=== PATIENT | female | born 1960 | race Caucasian/White ===

== ENCOUNTER → 2016-10-10 | Outpatient (CLI) | payer MEDICARE, MEDICAID ==
[~2016-10-10] MED LIST: /WARF5TA PO; ALBU83IN INH; ASPI325T PO; CALC600T62 PO; CALCTAB68 PO; EFFE150C PO; EFFEXOR ER PO; EFFEXOR-XR PO; ELIQ5TAB PO; FLON1SPR; MIRA3350 PO; MULTLIQ7 PO; QUET30XR PO; RISP3TAB PO; RISP3TAB2 PO; RISP3TAB3 PO; SERO150T PO; SERO200T2 PO; TOLN1POW TOP; TOPA100T PO; TOPA50TA PO; TOPI1TAB31 PO; TOPI50TA4 PO; TYLE325T5 PO; VITACHTA PO; WARF2.5T38 PO; WARF5TAB66 PO
== END ==
LOC: M LRY 10:12
DX: Z51.81 Encounter for therapeutic drug level monitoring (principal); Z79.899 Other long term (current) drug therapy

== ENCOUNTER → 2016-10-10 | Outpatient (REF) | payer MEDICARE, MEDICAID | LOC: M LRY 11:18 | PROVIDERS: ATTEND Psychiatry & Neurology Psychiatry | DX: Z51.81 Encounter for therapeutic drug level monitoring (principal); Z79.899 Other long term (current) drug therapy ==

== ENCOUNTER → 2017-01-05 | Outpatient (REF) | payer MEDICARE, MEDICAID ==
[~2017-01-05] MED LIST changes: +EPIP0.3I2 IJ; +SERO50TA PO; +TOPI100T9 PO; -TOPI1TAB31 PO; -TOPI50TA4 PO; +TOPI50TA9 PO
== END ==
LOC: M SFHCWAGY 10:35
PROVIDERS: ATTEND Nurse Practitioner Family
DX: Z12.4 Encounter for screening for malignant neoplasm of cervix (principal); Z12.31 Encounter for screening mammogram for malignant neoplasm of breast; Z12.11 Encounter for screening for malignant neoplasm of colon
CPT/HCPCS: 82270; G0101; G0123; G0202

== ENCOUNTER → 2017-01-05 | Outpatient (CLI) | payer MEDICARE, MEDICAID ==
--- NOTE | 2017-01-05 12:30 | REPMRS ---
Patient History The patient states she had a clinical breast exam in 12/2016. Patient is postmenopausal and is nulliparous. Family history of colorectal cancer in father. Digital Woman Screen Mammo: January 05, 2017 - Exam #: [id number] Bilateral CC and MLO view(s) were taken. Technologist: Fabienne Fernandez, Technologist Prior study comparison: January 03, 2016, digital woman screen mammo performed at [facility] to [facility]. January 01, 2015, digital woman screen mammo performed at [facility] to [facility]. FINDINGS: There are scattered fibroglandular densities. There has been no change in the appearance of the mammogram from the prior studies. There is a mild amount of residual fibroglandular tissue which is fairly symmetric. There is no interval development of dominant mass, architectural distortion, or clustered microcalcification suggestive of malignancy. ASSESSMENT: BI-RADS/ACR category 1 mammogram. Negative. Recommendation Routine screening mammogram in 1 year (for women over age 40). This mammogram was interpreted with the aid of an FDA-approved computer-aided dectection system. Electronically Signed By: Carlos A Carroll MD 01/05/17 0298
== END ==
LOC: M WHC 10:20
PROVIDERS: ATTEND Nurse Practitioner Family
DX: Z12.31 Encounter for screening mammogram for malignant neoplasm of breast (principal); Z78.0 Asymptomatic menopausal state; Z92.89 Personal history of other medical treatment

== ENCOUNTER → 2017-01-07 | Outpatient (CLI) | payer MEDICARE, MEDICAID ==
--- NOTE | 2017-01-07 18:31 | REP ---
RIGHT HIP COMPLETE: 01/07/2017: Clinical history: Hip pain, evaluate for fracture. Findings: No prior study. Two-views show the hip joint space, symmetric relatively preserved and without evidence of acetabular or femoral head rim osteophyte. Femoral head neck, trochanters and subtrochanteric femur, pubic rami, symphysis pubis, acetabulum and iliac bone visible were unremarkable. The SI joints and visible sacral ala and foramina intact. Impression. 1. No visible or displaced fracture about the hip. Signed by Nilo Starr MD 01/08/2017 04:43 P
== END ==
LOC: M LRY 15:55
PROVIDERS: ATTEND Nurse Practitioner Family
DX: M25.551 Pain in right hip (principal)

== ENCOUNTER → 2017-01-23 | Outpatient (REF) | payer MEDICARE, MEDICAID | LOC: M LAB REF 13:08 | PROVIDERS: ATTEND Nurse Practitioner Family | DX: R21 Rash and other nonspecific skin eruption (principal) ==

== ENCOUNTER 2017-02-09 10:41 | Day surgery (SDC) | payer MEDICARE, MEDICAID ==
[~2017-02-09] VITALS: Ht 154.9 cm; Wt 95.3 kg
[~2017-02-09 10:41] MED LIST changes: +CIPRODEX OTIC SUSP 7.5ML As Ordered ONE; +EPINEPHrine 1MG/ML INJ 30ML MD-VIAL As Ordered ONE; +LIDOCAINE W/EPINEPHRINE 1% 20ML VIAL As Ordered ONE; +MIDAZOLAM INJ 2 MG/2 ML VIAL (J2250) As Ordered ONE; +fentaNYL 100 MCG/2 ML INJECTION (J3010) As Ordered ONE
[2017-02-09] MEDS ORDERED: LR 1,000 ML IV ONE (11:00)
[2017-02-09] MEDS ORDERED: SCOPOLAMINE 1.5 MG TRANSDERMAL As Ordered ONE (11:27)
[2017-02-09] MEDS ORDERED: SCOPOLAMINE 1.5 MG TRANSDERMAL TOP ONE (11:30)
[2017-02-09] MEDS ORDERED: PHENYLephrine HCL 500 MCG/5 ML (100MCG/ML) SYRINGE (J2370) As Ordered ONE (11:56)
[2017-02-09] MEDS ORDERED: ePHEDrine SULFATE 25 MG/5 ML(5MG/ML) SYRINGE As Ordered ONE (11:57)
[2017-02-09] MEDS ORDERED: DESFLURANE 240 ML INHALANT As Ordered ONE (12:15)
[2017-02-09] MEDS ORDERED: dexameTHASONE 4 MG/ML 1ML VIAL (J1100) As Ordered ONE (12:37)
[2017-02-09] MEDS ORDERED: ONDANSETRON 4MG/2ML VIAL (J2405) As Ordered ONE (12:37)
[2017-02-09] MEDS ORDERED: fentaNYL 100 MCG/2 ML INJECTION (J3010) As Ordered ONE (13:04)
[2017-02-09] MEDS ORDERED: fentaNYL 100 MCG/2 ML INJECTION (J3010) IV PRN (14:15)
[2017-02-09] MEDS ORDERED: LR 1,000 ML IV SCH ×2 (14:15)
[2017-02-09] MEDS ORDERED: ACETAMINOPH W/CODEINE #3 TAB UD PO PRN (14:15)
[2017-02-09] MEDS ORDERED: PERCOCET 5MG/325MG TAB PO PRN (14:15)
[2017-02-09] MEDS ORDERED: ONDANSETRON 4MG/2ML VIAL (J2405) IV PRN (14:15)
--- NOTE | 2017-02-09 14:46 | RO ---
DATE OF PROCEDURE: 02/09/2017 PREOPERATIVE DIAGNOSIS: Right-sided hearing loss. POSTOPERATIVE DIAGNOSIS: Right-sided hearing loss. OPERATIVE PROCEDURE: Right tympanotomy and meatoplasty. SURGEON: Dr. Zion Brown CREOSOTING ENGINEER: ANESTHESIA: FINDINGS: There was some edema in the middle air space and no evidence of any cholesteatoma. Because of all the scarring, a reconstruction of ossicles was not performed. In addition, the patient had a posterior pocket in the canal, and this was revised during the procedure. DESCRIPTION OF PROCEDURE: Under general anesthesia, the patient prepped and draped in the usual manner, I infiltrated with lidocaine and epinephrine. A made a posterior tympanotomy incision and elevated that flap to the middle ear. The middle ear was examined. The above findings were seen. The canal wall skin was returned to original position. Then, a postauricular incision was made. I then dissected down to the mastoid. I then elevated this pocket out and removed it. Then, I took the canal wall skin, and I sutured it anteriorly. I put Iodoform dressing in the ear canal and then Iodoform gauze in the mastoid. I closed the wound with 3-0 chromic and 3-0 Prolene. The patient tolerated the procedure well. The patient was extubated and transferred to the recovery room in excellent condition.
[2017-02-09 17:40] VITALS: BP 119/56
== END 2017-02-09 17:46 | disposition home or self-care (01) ==
LOC: M SDC 10:41
PROVIDERS: ATTEND Otolaryngology
DX: H91.91 Unspecified hearing loss, right ear (principal); G47.33 Obstructive sleep apnea (adult) (pediatric); R73.09 Other abnormal glucose; M93.90 Osteochondropathy, unspecified of unspecified site; G31.84 Mild cognitive impairment of uncertain or unknown etiology; F31.9 Bipolar disorder, unspecified; F20.0 Paranoid schizophrenia; K59.00 Constipation, unspecified; Z88.0 Allergy status to penicillin; Z91.030 Bee allergy status; Z79.899 Other long term (current) drug therapy; Z86.711 Personal history of pulmonary embolism
CPT/HCPCS: 69310; J1100; J2250; J2370; J2405; J3010

== ENCOUNTER 2017-06-20 18:18 | Emergency (ER) | payer MEDICARE, MEDICAID ==
[2017-06-20 20:23] LABS: BASO % 0.4 % (0.0-1.0); EOS % 0.5 % (0.0-3.0); HEMATOCRIT 42.1 % (36.0-47.0); HEMOGLOBIN 13.7 g/dl (12.0-16.0); IMMATURE GRANULOCYTE % 0.4 % (0-0); LYMPH # 0.7 10^3/uL (1.5-4.5); LYMPH % 9.1 % (24.0-44.0); MEAN CORPUSCULAR HEMOGLOBIN 28.3 pg (27.0-33.0); MEAN CORPUSCULAR HGB CONC 32.5 g/dl (32.0-36.5); MONO # 0.7 10^3/uL (0.0-0.8); MONO % 8.9 % (0.0-5.0); NEUTROPHILS # 6.1 10^3/uL (1.8-7.7); NEUTROPHILS % 80.7 % (36.0-66.0); PLATELET COUNT, AUTOMATED 204 10^3/uL (150-450); RED BLOOD COUNT 4.84 10^6/uL (4.00-5.40); RED CELL DISTRIBUTION WIDTH 13.9 % (11.5-14.5); WHITE BLOOD COUNT 7.6 10^3/uL (4.0-10.0)
[2017-06-20 20:35] LABS: CONTROL LINE MONO INT CTR LINE PRESENT; MONO SCRN NEGATIVE (NEGATIVE)
[2017-06-20 20:39] LABS: ANION GAP 9 MEQ/L (8-16); BLOOD UREA NITROGEN 9 MG/DL (7-18); CALCIUM LEVEL 7.7 MG/DL (8.5-10.1); CARBON DIOXIDE LEVEL 22 MEQ/L (21-32); CHLORIDE LEVEL 108 MEQ/L (98-107); CREATININE FOR GFR 0.94 MG/DL (0.55-1.30); GLOMERULAR FILTRATION RATE > 60.0 (>51); GLUCOSE, FASTING 127 MG/DL (70-100); SODIUM LEVEL 139 MEQ/L (136-145)
[2017-06-20 20:50] LABS: INFLUENZA A AMPLIFICATION NEGATIVE (NEGATIVE); INFLUENZA B AMPLIFICATION NEGATIVE (NEGATIVE)
[2017-06-20 22:01] LABS: KETONE, URINE AUTO RFX NEGATIVE (NEGATIVE); LEUKOCYTE ESTERASE UR AUTO RFX NEGATIVE (NEGATIVE); NITRITE, URINE AUTO RFX NEGATIVE (NEGATIVE); RBC, URINE AUTO RFX 0 /HPF (0-3); SPECIFIC GRAVITY UR AUTO RFX 1.002 (1.002-1.035); SQUAM EPITHELIAL CELL UR AURFX 3 /HPF (0-6); WBC, URINE AUTO RFX 1 /HPF (0-3)
== END 2017-06-20 22:40 | disposition home or self-care (01) ==
LOC: M ED 18:18
DX: J02.0 Streptococcal pharyngitis (principal); H66.92 Otitis media, unspecified, left ear; G40.909 Epilepsy, unspecified, not intractable, without status epilepticus; F79 Unspecified intellectual disabilities; F33.9 Major depressive disorder, recurrent, unspecified; Z79.899 Other long term (current) drug therapy; Z86.711 Personal history of pulmonary embolism; Z88.0 Allergy status to penicillin; Z91.030 Bee allergy status; Z98.890 Other specified postprocedural states
CPT/HCPCS: 71046

== ENCOUNTER → 2017-10-19 | Outpatient (CLI) | payer MEDICARE, MEDICAID ==
[~2017-10-19] MED LIST changes: -/WARF5TA PO; -ALBU83IN INH; -ASPI325T PO; -CALC600T62 PO; -CALCTAB68 PO; -CIPRODEX OTIC SUSP 7.5ML As Ordered ONE; +E-Z-PAQUE 96% w/w SUSP 176GM BTL As Ordered; -EFFE150C PO; -EFFEXOR ER PO; -EFFEXOR-XR PO; -ELIQ5TAB PO; -EPINEPHrine 1MG/ML INJ 30ML MD-VIAL As Ordered ONE; -EPIP0.3I2 IJ; -FLON1SPR; -LIDOCAINE W/EPINEPHRINE 1% 20ML VIAL As Ordered ONE; -MIDAZOLAM INJ 2 MG/2 ML VIAL (J2250) As Ordered ONE; -MIRA3350 PO; -MULTLIQ7 PO; -QUET30XR PO; -RISP3TAB PO; -RISP3TAB2 PO; -RISP3TAB3 PO; -SERO150T PO; -SERO200T2 PO; -SERO50TA PO; -TOLN1POW TOP; -TOPA100T PO; -TOPA50TA PO; -TOPI100T9 PO; -TOPI50TA9 PO; -TYLE325T5 PO; +VARIBAR NECTAR 40% w/v 240ML SUSP BTL As Ordered; +VARIBAR PUDDING 40% w/v 230ML TUBE As Ordered; -VITACHTA PO; -WARF2.5T38 PO; -WARF5TAB66 PO; -fentaNYL 100 MCG/2 ML INJECTION (J3010) As Ordered ONE
== END ==
LOC: M RAD 10:56
DX: R13.10 Dysphagia, unspecified (principal)
CPT/HCPCS: 92611

== ENCOUNTER → 2017-11-11 | Outpatient (REF) | payer MEDICARE, MEDICAID | LOC: M SFHCLERA 18:07 | DX: R30.0 Dysuria (principal) | CPT/HCPCS: 87086 ==

== ENCOUNTER → 2018-08-23 | Outpatient (CLI) | payer MEDICARE, MEDICAID ==
[~2018-08-23] MED LIST changes: +ALBU83IN INH; +ASPI325T PO; +BACT800T5 PO; +CALC600T62 PO; +CALCTAB68 PO; +COUM1TAB17 PO; -E-Z-PAQUE 96% w/w SUSP 176GM BTL As Ordered; +EFFE150C2 PO; +EFFEXOR ER PO; +EFFEXOR-XR PO; +ELIQ5TAB PO; +EPIP0.3I2 IJ; +FLON1SPR; +MIRA3350 PO; +MULTLIQ7 PO; +RISP3TAB PO; +RISP3TAB2 PO; +RISP3TAB3 PO; +SERO150T PO; +SERO200T2 PO; +SERO300T PO; +SERO50TA PO; +TOLN1POW TOP; +TOPA100T PO; +TOPA50TA PO; +TOPI100T9 PO; +TOPI50TA9 PO; +TYLE325T5 PO; -VARIBAR NECTAR 40% w/v 240ML SUSP BTL As Ordered; -VARIBAR PUDDING 40% w/v 230ML TUBE As Ordered; +VITACHTA PO; +WARF2.5T38 PO; +WARF5TAB66 PO
[2018-08-23 12:22] LABS: ALBUMIN 3.6 GM/DL (3.2-5.2); ALT/SGPT 28 U/L (12-78); BILIRUBIN,TOTAL 0.3 MG/DL (0.2-1.0); BLOOD UREA NITROGEN 16 MG/DL (7-18); CALCIUM LEVEL 8.6 MG/DL (8.5-10.1); CARBON DIOXIDE LEVEL 26 MEQ/L (21-32); CHLORIDE LEVEL 109 MEQ/L (98-107); CHOLESTEROL LEVEL 257 MG/DL (<200); CHOLESTEROL RISK RATIO 4.508 (<5); CREATININE FOR GFR 0.99 MG/DL (0.55-1.30); GLOMERULAR FILTRATION RATE > 60.0 (>51); GLUCOSE, FASTING 113 MG/DL (70-100); HDL CHOLESTEROL 57 MG/DL (>40); LDL CHOLESTEROL 172 MG/DL (<100); NON-HDL-C 200 MG/DL; POTASSIUM SERUM 4.2 MEQ/L (3.5-5.1); SODIUM LEVEL 142 MEQ/L (136-145); TOTAL PROTEIN 6.9 GM/DL (6.4-8.2); TRIGLYCERIDES LEVEL 142 MG/DL (<150)
== END ==
LOC: M LRY 08:12
PROVIDERS: ATTEND Psychiatry & Neurology Psychiatry
DX: Z79.899 Other long term (current) drug therapy (principal)

== ENCOUNTER 2018-11-04 09:37 | Day surgery (SDC) | payer MEDICARE, MEDICAID ==
[~2018-11-04] VITALS: Ht 157.5 cm; Wt 98.9 kg
[~2018-11-04 09:37] MED LIST changes: +ANUS25SU PR; +CALCCAP4 PO; +NYST1CRE15 TOP; +TINA1CRE TOP
[2018-11-04] MEDS ORDERED: PROPOFOL 200 MG/20 ML VIAL As Ordered ONE (12:06)
[2018-11-04] MEDS ORDERED: ROCURONIUM BROMIDE 50 MG/5 ML VIAL As Ordered ONE (12:08)
[2018-11-04] MEDS ORDERED: LIDOCAINE 2% INJ 100 MG/5 ML SDV (FOR ANES.) As Ordered ONE (12:08)
[2018-11-04] MEDS ORDERED: fentaNYL 100 MCG/2 ML INJECTION (J3010) As Ordered ONE (12:11)
[2018-11-04] MEDS ORDERED: MIDAZOLAM INJ 2 MG/2 ML VIAL (J2250) As Ordered ONE (12:11)
[2018-11-04] MEDS ORDERED: dexameTHASONE 4 MG/ML 1ML VIAL (J1100) As Ordered ONE (12:15)
[2018-11-04] MEDS ORDERED: ONDANSETRON 4MG/2ML VIAL (J2405) As Ordered ONE (12:15)
[2018-11-04] MEDS ORDERED: LIDOCAINE W/EPINEPHRINE 1% 20ML VIAL As Ordered ONE (12:49)
[2018-11-04] MEDS ORDERED: CIPRODEX OTIC SUSP 7.5ML As Ordered ONE (12:49)
[2018-11-04] MEDS ORDERED: EPINEPHrine INJ 1 MG/ML 1ML AMP As Ordered ONE (12:50)
[2018-11-04] MEDS ORDERED: EPINEPHrine 1MG/ML INJ 30ML MD-VIAL As Ordered ONE (12:54)
[2018-11-04] MEDS ORDERED: METHYLENE BLUE 0.5% (5MG/ML) 10 ML AMP (PROVAYBLUE)(Q9968 PER 1MG) As Ordered ONE (13:30)
[2018-11-04] MEDS ORDERED: SUGAMMADEX SODIUM 500 MG/5 ML VIAL (BRIDION) As Ordered ONE (13:58)
[2018-11-04] MEDS ORDERED: GLYCOPYRROLATE INJ 0.2 MG/ML 2 ML VIAL As Ordered ONE (14:14)
[2018-11-04] MEDS ORDERED: ONDANSETRON 4MG/2ML VIAL (J2405) IV PRN (15:15)
[2018-11-04] MEDS ORDERED: fentaNYL 100 MCG/2 ML INJECTION (J3010) IV PRN (15:15)
[2018-11-04] MEDS ORDERED: LR 1,000 ML IV SCH (15:30)
[2018-11-04 16:00] VITALS: BP 142/85
--- NOTE | 2018-11-04 17:15 | ECGEPIP ---
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
--- NOTE | 2018-11-06 10:02 | RO ---
DATE OF PROCEDURE: 02/04/2019 PREOPERATIVE DIAGNOSIS: Keratin cyst, right external auditory canal. POSTOPERATIVE DIAGNOSIS: Keratin cyst, right external auditory canal. OPERATIVE PROCEDURE: Removal of keratin cyst right external auditory canal. SURGEON: Zion Brown MD PARKING LOT SPOTTER: ANESTHESIA: DESCRIPTION OF PROCEDURE: Under general anesthesia with the patient intubated, the patient was draped in the usual manner. I cleaned the ear with Betadine and saline. I infiltrated with lidocaine and epinephrine. I then dissected around this cyst which was in the posterior superior part of the canal wall. It was affixed to the tympanic membrane. There was no evidence of a cholesteatoma. It was removed without difficulty. The patient tolerated the procedure well. There was no bleeding. The patient was transferred to the recovery room in excellent condition.
== END 2018-11-04 16:15 | disposition home or self-care (01) ==
LOC: M SDC 09:37
PROVIDERS: ATTEND Otolaryngology
DX: H60.41 Cholesteatoma of right external ear (principal); R73.03 Prediabetes; G47.30 Sleep apnea, unspecified; Z79.01 Long term (current) use of anticoagulants; Z86.711 Personal history of pulmonary embolism; F32.9 Major depressive disorder, single episode, unspecified; Z79.899 Other long term (current) drug therapy; Z91.030 Bee allergy status; Z88.0 Allergy status to penicillin
CPT/HCPCS: 69145; 88304; 93005; J1100; J2250; J2405; J3010; Q9968

== ENCOUNTER → 2019-01-07 | Outpatient (CLI) | payer MEDICARE, MEDICAID ==
--- NOTE | 2019-01-07 12:52 | REPMRS ---
Patient History The patient states she had a clinical breast exam in 12/2018. Patient is postmenopausal and is nulliparous. Family history of colorectal cancer in father. No Hormone Replacement Therapy 3D TOMOSYNTHESIS WAS PERFORMED. [facility] lifetime risk for breast cancer is 10.1%. Digital Woman Screen Mammo: January 07, 2019 - Exam #: [id number] Bilateral CC and MLO view(s) were taken. Technologist: Fabienne Fernandez, Technologist Prior study comparison: January 13, 2018, digital mammo diagnostic bilateral, performed at [facility]. January 05, 2017, digital woman screen mammo performed at [facility]. FINDINGS: There are scattered fibroglandular densities. There has been no change in the appearance of the mammogram from the prior studies. There is a mild amount of residual fibroglandular tissue which is fairly symmetric. There is no interval development of dominant mass, architectural distortion, or clustered microcalcification suggestive of malignancy. Assessment: BI-RADS/ACR category 1 mammogram. Negative Mammogram. Recommendation Routine screening mammogram in 1 year (for women over age 40). This mammogram was interpreted with the aid of an FDA-approved computer-aided dectection system. Electronically Signed By: Carlos A Carroll MD 01/07/19 [id number]
== END ==
LOC: M WHC 11:02
PROVIDERS: ATTEND Nurse Practitioner Family
DX: Z01.419 Encounter for gynecological examination (general) (routine) without abnormal findings (principal); Z12.31 Encounter for screening mammogram for malignant neoplasm of breast; Z78.0 Asymptomatic menopausal state; Z80.0 Family history of malignant neoplasm of digestive organs; Z12.12 Encounter for screening for malignant neoplasm of rectum
CPT/HCPCS: 77063; 77067; 82270; G0101

== ENCOUNTER → 2019-02-23 | Outpatient (REF) | payer MEDICARE, MEDICAID | LOC: M LAB REF 11:42 | PROVIDERS: ATTEND Registered Nurse | DX: N39.0 Urinary tract infection, site not specified (principal) ==

== ENCOUNTER → 2019-05-19 | Outpatient (CLI) | payer MEDICARE, MEDICAID | LOC: M LRY 14:26 | PROVIDERS: ATTEND Nurse Practitioner Family | DX: R06.2 Wheezing (principal); R10.10 Upper abdominal pain, unspecified; Z53.8 Procedure and treatment not carried out for other reasons ==

== ENCOUNTER → 2019-05-19 | Outpatient (CLI) | payer MEDICARE, MEDICAID ==
--- NOTE | 2019-05-19 15:08 | REP ---
Nickel: Upper abdominal pain. Technique: Three supine views of the abdomen and pelvis. Findings: Bowel gas pattern is nonspecific. No organomegaly. No abnormal calcifications. Skeletal structures demonstrate age-related degenerative changes. Impression: Nonspecific bowel gas pattern. Electronically Signed by Aldair Jackson MD 05/19/2019 03:00 P
--- NOTE | 2019-05-19 16:19 | REP ---
Two-view chest: 05/19/2019. Indication: Chest pain. Wheezing. Comparison: 09/23/2017. Findings: Poor inspiratory result is noted. There is no air space consolidation, pleural effusion or pneumothorax detected. Cardiac silhouette is borderline enlarged. Impression: There is no evidence of acute cardiopulmonary process. Poor inspiratory result. Electronically Signed by Nacho Odom DO 05/19/2019 02:58 P
== END ==
LOC: M LRY 14:33
PROVIDERS: ATTEND Nurse Practitioner Family
DX: R06.2 Wheezing (principal); R10.10 Upper abdominal pain, unspecified
CPT/HCPCS: 71046; 74018; 81002; 94640; G0463

== ENCOUNTER → 2019-07-12 | Outpatient (CLI) | payer MEDICAID, MEDICARE | LOC: M WHC 08:50 | PROVIDERS: ATTEND Nurse Practitioner Adult Health | DX: M81.0 Age-related osteoporosis without current pathological fracture (principal) ==

== ENCOUNTER → 2020-01-10 | Outpatient (CLI) | payer MEDICARE, MEDICAID ==
--- NOTE | 2020-01-11 16:14 | REPMRS ---
Patient History The patient states she had a clinical breast exam in December 2019. Family history of colorectal cancer in father. No Hormone Replacement Therapy Digital Woman Screen Mammo: January 10, 2020 - Exam #: [id number] Bilateral CC and MLO view(s) were taken. Technologist: Saira Riddle, Technologist Prior study comparison: January 07, 2019, bilateral digital woman screen mammo performed at [facility]. January 13, 2018, digital mammo diagnostic bilateral, performed at [facility]. January 05, 2017, digital woman screen mammo performed at [facility]. FINDINGS: There are scattered fibroglandular densities. The Volpara volumetric breast density category is:B. There has been no change in the appearance of the mammogram from the prior studies. There is a mild amount of scattered fibroglandular density which is fairly symmetric. There is no interval development of dominant mass, architectural distortion, or grouped microcalcification suggestive of malignancy. 3-D tomosynthesis shows no additional findings. Assessment: BI-RADS/ACR category 1 mammogram. Negative Mammogram. Recommendation Routine screening mammogram of both breasts in 1 year (for women over age 40). This patient's Lifetime Breast Cancer Risk is estimated at 9.9 %. This mammogram was interpreted with the aid of an FDA-approved computer-aided dectection system. Electronically Signed By: Adalid Kimbrough MD 01/11/20 [id number]
== END ==
LOC: M WHC 11:27
PROVIDERS: ATTEND Nurse Practitioner Family
DX: Z01.419 Encounter for gynecological examination (general) (routine) without abnormal findings (principal); Z12.31 Encounter for screening mammogram for malignant neoplasm of breast; Z80.0 Family history of malignant neoplasm of digestive organs
CPT/HCPCS: 77063; 77067; G0101

== ENCOUNTER → 2020-11-16 | Outpatient (CLI) | payer MEDICARE, MEDICAID ==
[~2020-11-16] MED LIST changes: +LEVOTAB10; +QUET100T2 PO; +RISP-10 PO; -RISP3TAB3 PO; +VITMTA PO
== END ==
LOC: M LABSMTC 13:12
PROVIDERS: ATTEND Anesthesiology
DX: Z01.818 Encounter for other preprocedural examination (principal); Z11.52 Encounter for screening for COVID-19

== ENCOUNTER 2020-11-21 13:21 | Day surgery (SDC) | payer MEDICARE, MEDICAID ==
[~2020-11-21] VITALS: Ht 149.9 cm; Wt 97.1 kg
[~2020-11-21 13:21] MED LIST changes: +NS 1,000 ML IV ONE
[2020-11-21] MEDS ORDERED: propofoL 200 MG/20 ML VIAL As Ordered ONE (13:44)
[2020-11-21] MEDS ORDERED: LIDOCAINE 2% 100MG/5ML SDV (FOR ANES.) As Ordered ONE (13:44)
--- NOTE | 2020-11-21 14:51 | ROOR ---
Patient Name: Janice Mazariegos Procedure Date: 11/21/2020 2:24 PM Date of : 1960 Age: 60 Room: [facility] Gender: Female Note Status: Finalized Procedure: Total Colonoscopy to Cecum Indications: Colon cancer screening in patient at increased risk: Colorectal cancer in father Providers: Alfredo Hameed MD Referring MD: Imelda Farrar NP Requesting Provider: Medicines: Monitored Anesthesia Care Complications: No immediate complications. Procedure: Pre-Anesthesia Assessment: - The heart rate, respiratory rate, oxygen saturations, blood pressure, adequacy of pulmonary ventilation, and response to care were monitored throughout the procedure. The Colonoscope was introduced through the anus and advanced to the cecum, identified by appendiceal orifice and ileocecal valve. The colonoscopy was performed without difficulty. The patient tolerated the procedure well. The quality of the bowel preparation was good. Findings: The perianal and digital rectal examinations were normal. Multiple small and large-mouthed diverticula were found in the recto-sigmoid colon, sigmoid colon and descending colon. The exam was otherwise without abnormality on direct and retroflexion views. Impression: - Diverticulosis in the recto-sigmoid colon, in the sigmoid colon and in the descending colon. - The examination was otherwise normal on direct and retroflexion views. - No specimens collected. - The exam was otherwise normal to the cecum. Recommendation: - Patient has a contact number available for emergencies. The signs and symptoms of potential delayed complications were discussed with the patient. Return to normal activities tomorrow. Written discharge instructions were provided to the patient. - High fiber diet. - Discharge patient to home. - Continue present medications. - Repeat colonoscopy in 5 years for screening purposes. - Return to referring physician. - The findings and recommendations were discussed with the patient's family. Procedure Code(s): --- Professional --- G0105, Colorectal cancer screening; colonoscopy on individual at high risk Diagnosis Code(s): --- Professional --- Z80.0, Family history of malignant neoplasm of digestive organs K57.30, Diverticulosis of large intestine without perforation or abscess without bleeding CPT copyright 2019 [employer]. All rights reserved. The codes documented in this report are preliminary and upon stitch marker review may be revised to meet current compliance requirements. Alfredo Hameed MD Alfredo Hameed MD 11/21/2020 2:50:50 PM Electronically signed by Alfredo Hameed MD Number of Addenda: 0 Note Initiated On: 11/21/2020 2:24 PM Estimated Blood Loss: Estimated blood loss: none.
[2020-11-21 15:15] VITALS: BP 141/77
== END 2020-11-21 15:19 | disposition home or self-care (01) ==
LOC: M OPP 13:21
PROVIDERS: ATTEND Internal Medicine Gastroenterology
DX: Z12.11 Encounter for screening for malignant neoplasm of colon (principal); Z80.0 Family history of malignant neoplasm of digestive organs; K57.30 Diverticulosis of large intestine without perforation or abscess without bleeding; Z79.899 Other long term (current) drug therapy; Z88.0 Allergy status to penicillin; Z91.030 Bee allergy status

== ENCOUNTER → 2021-01-28 | Outpatient (REF) | payer MEDICARE, MEDICAID ==
[~2021-01-28] MED LIST changes: -NS 1,000 ML IV ONE
== END ==
LOC: M SFHCWAGY 19:20
PROVIDERS: ATTEND Nurse Practitioner Women's Health
DX: Z12.4 Encounter for screening for malignant neoplasm of cervix (principal)
CPT/HCPCS: 87624; G0123

== ENCOUNTER → 2021-01-28 | Outpatient (CLI) | payer MEDICARE, MEDICAID ==
--- NOTE | 2021-01-28 16:03 | REPMRS ---
Patient History The patient states she had a clinical breast exam in 2020. Family history of colorectal cancer in father. No Hormone Replacement Therapy No breast complaints today Patient signed the MRS sheet 1st covid vaccine 06/26/20-Moderna 2nd covid vaccine 07/24/20-aid with patient does not know which arm they were in [employer] on PACS Patient Identification Verified Digital Woman Screen Mammo: January 28, 2021 - Exam #: [id number] Bilateral CC and MLO view(s) were taken. Technologist: Rachel Love, Technologist Prior study comparison: January 10, 2020, bilateral digital woman screen mammo performed at [facility]. January 07, 2019, bilateral digital woman screen mammo performed at [facility]. FINDINGS: There are scattered fibroglandular densities. Screening. Digital screening (2D) mammography was performed bilaterally in the CC and MLO projections. Additionally, breast tomosynthesis (3D mammography) was performed bilaterally in the CC and MLO projections. Todays exam was compared to the prior exam/exams. By history, the patient has no complaints of a palpable breast abnormality or other significant breast complaints. The breasts are unchanged in size and shape. There are no mini-soft tissue densities or spiculated masses. There is no internal architectural distortion. Once again, stable benign appearing calcifications are seen.There are no suspicious mini-calcific clusters. Skin thickening or nipple retraction is not present. IMPRESSION: BI-RADS Category 2- Benign Findings. There is no evidence of malignant alteration of the breasts. Followup examination recommended in one year. The Volpara volumetric breast density category is B, there are scattered areas of fibroglandular densities. This mammogram was read with the assistance of [facility] [employer],an FDA approved computer aided detection system for mammography. The lifetime Tyrer-Cuzick score is 9.6 % Negative x-ray reports should not delay surgical consultation if a dominant or clinically suspicious mass is present. Not all breast cancers can be identified by mammography. Therefore, we recommend that you continue to perform regular breast self-examination and physical examination and then promptly contact your physician of any concerns or changes. Adenosis and dense breasts may obscure an underlying neoplasm. Assessment: BI-RADS/ACR category 2 mammogram. Benign Findings. Recommendation Routine screening mammogram of both breasts in 1 year. Electronically Signed By: Sunday Cortez DO 01/28/21 [id number]
== END ==
LOC: M WHC 15:00
PROVIDERS: ATTEND Nurse Practitioner Women's Health
DX: Z12.31 Encounter for screening mammogram for malignant neoplasm of breast (principal)
CPT/HCPCS: 77063; 77067; 87624; G0101; G0123

== ENCOUNTER → 2021-08-10 | Outpatient (CLI) | payer MEDICARE, MEDICAID ==
[2021-08-10 14:08] LABS: APPEARANCE, URINE CLEAR (CLEAR); BACTERIA, URINE AUTO 1+ (NEGATIVE); BILIRUBIN, URINE AUTO NEGATIVE (NEGATIVE); BLOOD, URINE BLOOD NEGATIVE (NEGATIVE); COLOR, URINE STRAW (YELLOW); GLUCOSE, URINE (UA) AUTO NEGATIVE (NEGATIVE); KETONE, URINE AUTO NEGATIVE (NEGATIVE); LEUKOCYTE ESTERASE, URINE AUTO NEGATIVE (NEGATIVE); NITRITE, URINE AUTO NEGATIVE (NEGATIVE); PROTEIN, URINE AUTO NEGATIVE (NEGATIVE); RBC, URINE AUTO 0 /HPF (0-3); SPECIFIC GRAVITY URINE AUTO 1.004 (1.002-1.035); SQUAMOUS EPITHELIAL CELL UR AU 2 /HPF (0-6); UROBILINOGEN, URINE AUTO 0.2 mg/dL (0.0-2.0); WBC, URINE AUTO 1 /HPF (0-3)
== END ==
LOC: M LAB 13:46
DX: N39.0 Urinary tract infection, site not specified (principal)

== ENCOUNTER → 2021-10-10 | Outpatient (REF) | payer MEDICARE, MEDICAID | LOC: M LAB REF 12:23 | PROVIDERS: ATTEND Nurse Practitioner Adult Health | DX: J20.9 Acute bronchitis, unspecified (principal) ==

== ENCOUNTER → 2021-11-14 | Outpatient (REF) | payer MEDICARE, MEDICAID ==
[~2021-11-14] MED LIST changes: +ALBU2.5V10 INH; -ALBU83IN INH
== END ==
LOC: M LAB REF 16:08
PROVIDERS: ATTEND Nurse Practitioner Adult Health
DX: R30.0 Dysuria (principal)

== ENCOUNTER → 2022-02-14 | Outpatient (CLI) | payer MEDICARE, MEDICAID | LOC: M WHC 13:59 | PROVIDERS: ATTEND Nurse Practitioner Adult Health | DX: Z12.31 Encounter for screening mammogram for malignant neoplasm of breast (principal) ==

== ENCOUNTER → 2022-04-02 | Outpatient (REF) | payer MEDICARE, MEDICAID | LOC: M LAB REF 16:50 | PROVIDERS: ATTEND Nurse Practitioner Adult Health | DX: N39.0 Urinary tract infection, site not specified (principal) ==

== ENCOUNTER → 2022-08-21 | Outpatient (CLI) | payer MEDICARE, MEDICAID ==
[~2022-08-21] MED LIST changes: +TOPI-254 PO; -TOPI50TA9 PO
== END ==
LOC: M WUC 14:14
PROVIDERS: ATTEND Nurse Practitioner Adult Health
DX: M25.571 Pain in right ankle and joints of right foot (principal)

== ENCOUNTER → 2022-08-25 | Outpatient (CLI) | payer MEDICARE, MEDICAID | LOC: M WHC 13:37 | PROVIDERS: ATTEND Nurse Practitioner Family | DX: Z12.31 Encounter for screening mammogram for malignant neoplasm of breast (principal) ==

== ENCOUNTER → 2022-10-09 | Outpatient (REF) | payer MEDICARE, MEDICAID | LOC: M LAB REF 16:24 | PROVIDERS: ATTEND Nurse Practitioner Adult Health | DX: N39.0 Urinary tract infection, site not specified (principal) ==

== ENCOUNTER → 2023-02-20 | Outpatient (CLI) | payer MEDICARE, MEDICAID | LOC: M WHC 13:53 | PROVIDERS: ATTEND Nurse Practitioner Adult Health | DX: Z12.31 Encounter for screening mammogram for malignant neoplasm of breast (principal); Z13.820 Encounter for screening for osteoporosis; Z78.0 Asymptomatic menopausal state ==

== ENCOUNTER → 2023-03-16 | Outpatient (CLI) | payer MEDICARE, MEDICAID | LOC: M WUC 15:21 | DX: M25.561 Pain in right knee (principal) ==

== ENCOUNTER → 2023-04-08 | Outpatient (REF) | payer MEDICARE, MEDICAID ==
[2023-04-08 12:30] LABS: APPEARANCE, URINE CLEAR (CLEAR); BACTERIA, URINE AUTO NEGATIVE (NEGATIVE); BILIRUBIN, URINE AUTO NEGATIVE (NEGATIVE); BLOOD, URINE BLOOD 2+ (NEGATIVE); COLOR, URINE STRAW (YELLOW); GLUCOSE, URINE (UA) AUTO NEGATIVE (NEGATIVE); KETONE, URINE AUTO NEGATIVE (NEGATIVE); LEUKOCYTE ESTERASE, URINE AUTO TRACE (NEGATIVE); MUCUS, URINE SMALL (NEGATIVE); NITRITE, URINE AUTO NEGATIVE (NEGATIVE); PROTEIN, URINE AUTO NEGATIVE (NEGATIVE); RBC, URINE AUTO 3 /HPF (0-3); SPECIFIC GRAVITY URINE AUTO 1.008 (1.002-1.035); SQUAMOUS EPITHELIAL CELL UR AU 0 /HPF (0-6); UROBILINOGEN, URINE AUTO 0.2 mg/dL (0.0-2.0); WBC, URINE AUTO 1 /HPF (0-3)
== END ==
LOC: M LAB REF 11:29
PROVIDERS: ATTEND Internal Medicine
DX: N39.3 Stress incontinence (female) (male) (principal)

== ENCOUNTER → 2023-04-22 | Outpatient (REF) | payer MEDICARE, MEDICAID ==
[~2023-04-22] MED LIST changes: -EFFE150C2 PO; +EFFE150C3 PO; +TOPI-21 PO; -TOPI-254 PO
[2023-04-22 14:16] LABS: AMORPHOUS SEDIMENT SMALL (NEGATIVE); APPEARANCE, URINE HAZY (CLEAR); BACTERIA, URINE AUTO NEGATIVE (NEGATIVE); BILIRUBIN, URINE AUTO NEGATIVE (NEGATIVE); BLOOD, URINE BLOOD NEGATIVE (NEGATIVE); COLOR, URINE YELLOW (YELLOW); GLUCOSE, URINE (UA) AUTO NEGATIVE (NEGATIVE); KETONE, URINE AUTO NEGATIVE (NEGATIVE); LEUKOCYTE ESTERASE, URINE AUTO NEGATIVE (NEGATIVE); NITRITE, URINE AUTO NEGATIVE (NEGATIVE); PROTEIN, URINE AUTO NEGATIVE (NEGATIVE); RBC, URINE AUTO 0 /HPF (0-3); SPECIFIC GRAVITY URINE AUTO 1.008 (1.002-1.035); SQUAMOUS EPITHELIAL CELL UR AU 0 /HPF (0-6); UROBILINOGEN, URINE AUTO 0.2 mg/dL (0.0-2.0); WBC, URINE AUTO 0 /HPF (0-3)
== END ==
LOC: M LAB REF 13:41
PROVIDERS: ATTEND Internal Medicine
DX: N39.3 Stress incontinence (female) (male) (principal)

== ENCOUNTER → 2023-07-22 | Outpatient (CLI) | payer MEDICARE, MEDICAID ==
[~2023-07-22] MED LIST changes: -RISP-10 PO; +RISP3TAB77 PO
== END ==
LOC: M WUC 08:09
PROVIDERS: ATTEND Nurse Practitioner Family
DX: M19.012 Primary osteoarthritis, left shoulder (principal)

== ENCOUNTER → 2023-08-20 | Outpatient (CLI) | payer MEDICARE, MEDICAID | LOC: M WUC 13:31 | PROVIDERS: ATTEND Nurse Practitioner Family | DX: M25.522 Pain in left elbow (principal) ==

== ENCOUNTER → 2023-08-27 | Outpatient (REF) | payer MEDICARE, MEDICAID | LOC: M SFHCWAGY 13:12 | PROVIDERS: ATTEND Nurse Practitioner Family | DX: Z12.4 Encounter for screening for malignant neoplasm of cervix (principal) ==

== ENCOUNTER → 2023-09-15 | Outpatient (RCR) | payer MEDICARE, MEDICAID | LOC: M PT 08-18 13:48 | PROVIDERS: ATTEND Nurse Practitioner Family | DX: N39.46 Mixed incontinence (principal) ==

== ENCOUNTER → 2023-10-27 | Outpatient (REF) | payer MEDICARE, MEDICAID | LOC: M LAB REF 16:13 | PROVIDERS: ATTEND Nurse Practitioner Family | DX: R30.0 Dysuria (principal) ==

== ENCOUNTER → 2024-02-15 | Outpatient (CLI) | payer MEDICARE, MEDICAID | LOC: M WUC 10:21 | PROVIDERS: ATTEND Internal Medicine | DX: R06.02 Shortness of breath (principal) ==

== ENCOUNTER → 2024-02-22 | Outpatient (CLI) | payer MEDICARE, MEDICAID | LOC: M WHC 12:28 | PROVIDERS: ATTEND Nurse Practitioner Family | DX: Z12.31 Encounter for screening mammogram for malignant neoplasm of breast (principal) ==

== ENCOUNTER → 2024-07-28 | Outpatient (CLI) | payer MEDICARE, MEDICAID | LOC: M SOG 08:59 | PROVIDERS: ATTEND Physician Assistant | DX: M17.11 Unilateral primary osteoarthritis, right knee (principal) ==

== ENCOUNTER → 2024-08-29 | Outpatient (CLI) | payer MEDICARE, MEDICAID | LOC: M SLEEP 20:00 | PROVIDERS: ATTEND Nurse Practitioner Adult Health | DX: G47.33 Obstructive sleep apnea (adult) (pediatric) (principal) ==

== ENCOUNTER → 2024-11-04 | Outpatient (CLI) | payer MEDICARE, MEDICAID ==
[~2024-11-04] MED LIST changes: +TOPI-257 PO; -TOPI100T9 PO
== END ==
LOC: M WUC 11:22
PROVIDERS: ATTEND Nurse Practitioner Family
DX: M25.511 Pain in right shoulder (principal)

== ENCOUNTER → 2025-03-03 | Outpatient (CLI) | payer MEDICARE, MEDICAID ==
[~2025-03-03] MED LIST changes: +DESI13CR2 TOP; +DICL100G10 TOP; -LEVOTAB10; +LEVOTAB10 PO; +MENT118G7 TP; +OXYB10TA23 PO; +QUET400T42 PO; +SERO200T PO; +THERTAB19 PO
== END ==
LOC: M SLEEP 20:00
PROVIDERS: ATTEND Nurse Practitioner Adult Health
DX: G47.33 Obstructive sleep apnea (adult) (pediatric) (principal)

== ENCOUNTER 2025-03-06 10:40 | Observation (INO) | payer MEDICARE, MEDICAID ==
[~2025-03-06 10:40] MED LIST changes: -DESI13CR2 TOP; -DICL100G10 TOP; -MENT118G7 TP; -OXYB10TA23 PO; -QUET400T42 PO; -SERO200T PO; -THERTAB19 PO
[2025-03-06] MEDS ORDERED: QUET400T42 PO (12:01)
[2025-03-06] MEDS ORDERED: OXYB10TA23 PO (12:01)
[2025-03-06] MEDS ORDERED: MIRA3350 PO (12:01)
[2025-03-06] MEDS ORDERED: SERO200T PO (12:37)
[2025-03-06] MEDS ORDERED: MENT118G7 TP (12:37)
[2025-03-06] MEDS ORDERED: DESI13CR2 TOP (12:37)
[2025-03-06] MEDS ORDERED: THERTAB19 PO (12:37)
[2025-03-06] MEDS ORDERED: HOME MED LIST COMPLETE! XX SCH (12:45)
[2025-03-06 14:36] LABS: BASO # 0.1 10^3/uL (0.0-0.2); BASO % 0.5 % (0.0-1.0); EOS # 0.2 10^3/uL (0.0-0.5); EOS % 1.7 % (0.0-3.0); LYMPH # 0.7 10^3/uL (1.5-5.0); LYMPH % 7.1 % (24.0-44.0); MONO # 0.7 10^3/uL (0.0-0.8); MONO % 7.1 % (2.0-8.0); NEUTROPHILS # 8.6 10^3/uL (1.5-8.5); NEUTROPHILS % 83.0 % (36.0-66.0); PLATELET COUNT, AUTOMATED 230 10^3/uL (150-450)
[2025-03-06 14:52] LABS: INR 1.07
[2025-03-06 15:02] LABS: CALCIUM LEVEL 9.2 MG/DL (8.3-10.6); CARBON DIOXIDE LEVEL 27.0 MMOL/L (20-31); CHLORIDE LEVEL 105.0 MMOL/L (98-107); CK-MB VALUE MASS 151.3 NG/ML (<3.6); CREATININE FOR GFR 0.9 MG/DL (0.55-1.30); GLOMERULAR FILTRATION RATE 72.3 (>45); POTASSIUM SERUM 4.4 MMOL/L (3.5-5.1); SODIUM LEVEL 142.0 MMOL/L (136-145)
[2025-03-06 15:15] LABS: CPK CREATINE PHOSPHOKINASE 2073.0 U/L (34-145); MB/CK RELATIVE INDEX 7.29 (< OR =4)
[2025-03-06] MEDS: NS (Normal Saline) 0.9% 1,000 ML IV SCH (15:34)
[2025-03-06] MEDS ORDERED: ISOVUE-370 76% 100 ML VIAL As Ordered ONE (15:37)
[2025-03-06] MEDS ORDERED: MAALOX 30 ML SUSP *UDC PO PRN (21:00)
[2025-03-06] MEDS: DOCUSATE SODIUM 100 MG CAPSULE PO SCH (21:00)
[2025-03-06] MEDS ORDERED: MOM 30 ML SUSPENSION UDC PO PRN (21:00)
[2025-03-06] MEDS: LR 1,000 ML IV SCH (22:16)
[2025-03-07 01:14] LABS: CALCIUM LEVEL 8.5 MG/DL (8.3-10.6); CARBON DIOXIDE LEVEL 29.0 MMOL/L (20-31); CHLORIDE LEVEL 105.0 MMOL/L (98-107); CREATININE FOR GFR 0.89 MG/DL (0.55-1.30); GLOMERULAR FILTRATION RATE 73.3 (>45); POTASSIUM SERUM 4.1 MMOL/L (3.5-5.1); SODIUM LEVEL 143.0 MMOL/L (136-145)
[2025-03-07 01:31] LABS: CPK CREATINE PHOSPHOKINASE 2263.0 U/L (34-145)
[2025-03-07 05:00] VITALS: TEMP 98.7
[2025-03-07 06:33] LABS: BASO # 0.0 10^3/uL (0.0-0.2); BASO % 0.4 % (0.0-1.0); EOS # 0.2 10^3/uL (0.0-0.5); EOS % 2.2 % (0.0-3.0); LYMPH # 0.6 10^3/uL (1.5-5.0); LYMPH % 8.7 % (24.0-44.0); MONO # 0.5 10^3/uL (0.0-0.8); MONO % 7.7 % (2.0-8.0); NEUTROPHILS # 5.5 10^3/uL (1.5-8.5); NEUTROPHILS % 80.4 % (36.0-66.0); PLATELET COUNT, AUTOMATED 213 10^3/uL (150-450)
[2025-03-07 07:04] LABS: ALT/SGPT 55.0 U/L (7.0-40); AST/SGOT 79.0 U/L (<34); CALCIUM LEVEL 8.5 MG/DL (8.3-10.6); CARBON DIOXIDE LEVEL 27.0 MMOL/L (20-31); CHLORIDE LEVEL 106.0 MMOL/L (98-107); CREATININE FOR GFR 0.79 MG/DL (0.55-1.30); GLOMERULAR FILTRATION RATE 84.5 (>45); MAGNESIUM LEVEL 2.0 MG/DL (1.8-2.4); POTASSIUM SERUM 4.2 MMOL/L (3.5-5.1); SODIUM LEVEL 142.0 MMOL/L (136-145)
[2025-03-07 07:18] LABS: CPK CREATINE PHOSPHOKINASE 1989.0 U/L (34-145)
[2025-03-07] MEDS: APIXABAN 5 MG TAB PO SCH (08:59)
[2025-03-07] MEDS: oxyBUTYnin *XL* 5 MG TAB PO SCH (08:59)
[2025-03-07] MEDS: ACETAMINOPHEN 325 MG TAB PO PRN (09:00)
[2025-03-07] MEDS: TOPIRAMATE 25 MG TAB PO SCH (09:00)
[2025-03-07] MEDS: VENLAFAXINE **XR** 75MG CAPSULE PO SCH (09:00)
[2025-03-07] MEDS: MIRALAX *UNIT DOSE* 17 GM PACKET PO SCH (09:08)
[2025-03-07] MEDS ORDERED: DICL100G10 TOP (11:45)
[2025-03-07 14:32] VITALS: O2SAT 98
[2025-03-07 14:43] VITALS: BP 129/60
[2025-03-07] MEDS ORDERED: QUEtiapine FUMARATE **XR** 200MG TABLET PO SCH (21:00)
[2025-03-07] MEDS ORDERED: TOPIRAMATE 100 MG TAB PO SCH (21:00)
== END 2025-03-07 16:45 | disposition home or self-care (01) ==
LOC: M ED 10:40 → M ED INP 10:41
PROVIDERS: ADMIT Student in an Organized Health Care Education/Training Program; ATTEND Student in an Organized Health Care Education/Training Program
DX: M62.82 Rhabdomyolysis (principal); F25.9 Schizoaffective disorder, unspecified; F63.9 Impulse disorder, unspecified; G47.33 Obstructive sleep apnea (adult) (pediatric); Z86.711 Personal history of pulmonary embolism; Z86.718 Personal history of other venous thrombosis and embolism; S80.02XA Contusion of left knee, initial encounter; S20.212A Contusion of left front wall of thorax, initial encounter; W19.XXXA Unspecified fall, initial encounter; Y92.9 Unspecified place or not applicable; F79 Unspecified intellectual disabilities; R32 Unspecified urinary incontinence; K59.00 Constipation, unspecified; Z79.01 Long term (current) use of anticoagulants; Z79.899 Other long term (current) drug therapy; Z88.0 Allergy status to penicillin; Z88.8 Allergy status to other drugs, medicaments and biological substances; Z91.030 Bee allergy status
CPT/HCPCS: 36415; 70450; 71260; 72125; 73564; 74177; 80048; 80053; 82550; 82553; 83735; 84484; 85014; 85018; 85025; 85610; 85730; 93005; 93041; 94760; 96360; 96361; 99285; G0378; Q9967

== ENCOUNTER → 2025-03-14 | Outpatient (REF) | payer MEDICARE, MEDICAID ==
[~2025-03-14] MED LIST changes: +DESI13CR2 TOP; +DICL100G10 TOP; +MENT118G7 TP; +OXYB10TA23 PO; +QUET400T42 PO; +SERO200T PO; +THERTAB19 PO
== END ==
LOC: M LAB REF 15:17
PROVIDERS: ATTEND Nurse Practitioner Family
DX: M62.82 Rhabdomyolysis (principal)

== ENCOUNTER → 2025-04-06 | Outpatient (CLI) | payer MEDICARE, MEDICAID | LOC: M WHC 09:29 | PROVIDERS: ATTEND Nurse Practitioner Family | DX: Z12.31 Encounter for screening mammogram for malignant neoplasm of breast (principal); Z13.820 Encounter for screening for osteoporosis; R92.323 Mammographic fibroglandular density, bilateral breasts; Z78.0 Asymptomatic menopausal state ==

== ENCOUNTER → 2025-05-09 | Outpatient (REF) | payer MEDICARE, MEDICAID | LOC: M LAB REF 15:08 | DX: R82.90 Unspecified abnormal findings in urine (principal) ==

== ENCOUNTER 2025-05-12 13:36 | Emergency (ER) | payer MEDICARE, MEDICAID ==
[2025-05-12 15:51] VITALS: BP 128/82; TEMP 97.6; O2SAT 98
== END 2025-05-12 16:36 | disposition home or self-care (01) ==
LOC: EDBD 13:36 → M ED 13:36
DX: R09.89 Other specified symptoms and signs involving the circulatory and respiratory systems (principal); G47.33 Obstructive sleep apnea (adult) (pediatric); Z86.711 Personal history of pulmonary embolism; Z88.0 Allergy status to penicillin; Z88.8 Allergy status to other drugs, medicaments and biological substances; Z91.030 Bee allergy status; Z79.01 Long term (current) use of anticoagulants; Z79.899 Other long term (current) drug therapy; Z79.810 Long term (current) use of selective estrogen receptor modulators (SERMs)